=== PATIENT | female | born 1955 | race Caucasian/White ===

== ENCOUNTER 2016-08-26 16:45 | Outpatient (CLI) | payer MEDICARE, OTHER ==
[~2016-08-26 16:45] MED LIST: ASP81TEC PO; CALC-793 PO; CLN.1T PO; ERGO400C PO; FERR-57 PO; MOTRIN 600MG; NF-ESOM40C PO; NR-TACRO1 PO; PRAV40TA PO; PRD5T PO; SULF1TAB34 PO; TYLENOL #3; [UNRECOGNIZED DRUG - CODE] PO; myfortic PO
== END 2016-08-26 17:12 | disposition home or self-care (01) ==
LOC: SLEEP 16:45
PROVIDERS: ATTEND Internal Medicine Critical Care Medicine
DX: G47.9 Sleep disorder, unspecified (principal); E66.9 Obesity, unspecified; R06.83 Snoring

== ENCOUNTER → 2022-09-22 | Outpatient (CLI) | payer MEDICARE, OTHER | LOC: CARD 14:18 | PROVIDERS: ATTEND Internal Medicine Cardiovascular Disease | DX: I51.7 Cardiomegaly (principal) | CPT/HCPCS: 93306 ==

== ENCOUNTER → 2022-10-24 | Outpatient (CLI) | payer MEDICARE, OTHER ==
[~2022-10-24] MED LIST changes: +CATHETER FLUSH 10 ML SYR IVP PRN
[2022-10-24 12:45] VITALS: BP 170/81
--- NOTE | 2022-10-25 08:37 | Cardiology Stress Test Report ---
Stress Test Report Date of Procedure/Referring: Date of Procedure: Oct 24, 2022 PCP Bianca Mckinney MD Admitting Physician Admitting Physician: Attending Physician: Clary Martinez MD Baseline Heart Rate: 67 Baseline Blood Pressure: Blood Pressure Systolic: 170 Blood Pressure Diastolic: 81 Vital Signs Date Time Temp Pulse Resp B/P (MAP) Pulse Ox O2 Delivery O2 Flow Rate FiO2 10/24/22 12:45 67 170/81 (110) Baseline Vital Signs Vital Signs Date Time Temp Pulse Resp B/P (MAP) Pulse Ox O2 Delivery O2 Flow Rate FiO2 10/24/22 12:45 67 170/81 (110) Baseline EKG: Baseline EKG: NSR Summary: After explaining the procedure and details to the patient, she signed the consent and was brought to the stress nuclear laboratory. Patient exercised on standard Yemi protocol, EKG, heart rate and blood pressure were monitored continuously, resting and stress doses of radio tracer were injected, imaging was acquired and reviewed in the short axis, horizontal long a xis and vertical long axis views Patient was able to exercise for a total of 4 minutes on Yemi protocol, METs 4.7 Maximum heart rate 154 Maximum blood pressure 199/82 Stress EKG, Minimal nondiagnostic changes Recovery EKG, Return to baseline TID: 1.15 SSS: 7 SDS: 6 EF: 72 Conclusion: Fair exercise tolerance for 4 minutes on standard Yemi protocol, 4.7 METS achieving 99% of maximal expected heart rate Appropriate heart rate response to exercise with hypertensive response to exercise with peak blood pressure 199/82 return to baseline during recovery Nondiagnostic EKG changes with exercise return to baseline during recovery Breast attenuation with reversible ischemia involving the mid to apical anterior septum and mid anterior wall Normal left ventricular size, ejection fraction 76% Copy Copies To 1: BIANCA MCKINNEY MD, BASHAR J MD Oct 25, 2022 08:37
== END ==
LOC: CARD 09:56
PROVIDERS: ATTEND Internal Medicine Cardiovascular Disease
DX: R06.09 Other forms of dyspnea (principal)
CPT/HCPCS: 78452; 93017; A9502